=== PATIENT | female | born 1955 | race Caucasian/White ===

== ENCOUNTER → 2017-02-05 | Outpatient (CLI) | payer OTHER ==
[~2017-02-05] MED LIST: ASPIR-LOW81 MG PO; ASPIRIN CHEWABL81 MG PO; ATIVAN 1MG TABLE1 MG PO; COLACE 100MG C100 MG PO; CUBICIN 500 MG500 MG INJ; EFFEXOR 25 MG T25 MG PO; FLAGYL500 MG PO; FLONASE 0.05% N16 GM; FLOVENT DISKUS50 MCG INH; GLUCOTROL5 MG PO; LIPITOR TAB 2020 MG PO; LOVENOX SY40 MG/0.4 SQ; METOPROLOL TART25 MG PO; MIRAPEX0.25 MG PO; NEURONTIN 300300 MG PO; NITROSTAT 0.40.4 MG SL; OXYCODONE HCL10 MG PO; PHENERGAN 12.12.5 M1 PO; ROCEPHIN 1 GM AD1 GM IV; ZESTRIL2.5 MG PO; ZOFRAN 4 MG TAB4 MG PO
== END ==
LOC: KOH-I 11:46
DX: M79.672 Pain in left foot (principal)
CPT/HCPCS: 73610; 73630